=== PATIENT | male | born 1950 | race Caucasian/White ===

== ENCOUNTER 2017-08-09 13:16 | Emergency (ER) | payer MEDICARE, BC ==
[2017-08-09 13:40] LABS: #Basophils 0.1 thou/uL (0.0-0.2); #Eosinphils 0.1 thou/uL (0.0-0.7); #Lymphocytes 1.9 thou/uL (1.20-3.40); #Monocytes 0.7 thou/uL (0.11-0.59); #Neutrophils 4.5 thou/uL (1.40-6.50); %Basophils 0.8 % (0.0-1.0); %Lymphocytes 26.5 % (21.0-51.0); %Monocytes 9.9 % (0.0-10.0); %Neutrophils 60.9 % (42.0-75.0); Mean Corpuscular HGB CONC 34.2 g/dL (32.0-36.0); Mean Corpuscular Hemoglobin 33.2 pg (27.0-31.0); Mean Platelet Volume 6.4 fL (7.4-10.4); Platelet Count 292 thou/uL (130-400); RBC Distribution Width 11.4 % (11.5-14.5); Red Blood Cell (RBC) Count 4.81 mill/uL (4.70-6.10); White Blood Cell (WBC) Count 7.3 thou/uL (4.8-10.8)
[2017-08-09 13:57] LABS: PTT 25.4 SEC (22.9-36.1)
[2017-08-09 14:00] LABS: INR-International Normal Ratio 1.1; Prothrombin Time 13.9 SEC (12.0-14.7)
--- NOTE | 2017-08-09 14:05 | RAD ---
FRONTAL VIEW CHEST: Date: 08/09/17 INDICATION: Syncope. Reference made to 09/25/12. FINDINGS: There is no consolidation, effusion, or pneumothorax. Cardiomediastinal silhouette is within normal l imits of size. Mild osseous degenerative change present. IMPRESSION: No focal consolidation. POS: [facility]
[2017-08-09 14:07] LABS: CKMB 2.7 ng/mL (0-6.6); Troponin I Less than 0.010 ng/mL (< 0.028)
[2017-08-09 14:10] LABS: ALT (SGPT) 27 U/L (8-55); AST (SGOT) 36 U/L (5-34); Albumin 4.3 g/dL (3.4-4.8); Alkaline Phosphatase 60 U/L (40-150); Anion Gap 14 mmol/L (10-20); BUN (Urea Nitrogen) 13 mg/dL (8.4-25.7); Bilirubin, Total 0.7 mg/dL (0.2-1.2); Calc. Creatinine Clearance 0 mL/min (70-130); Calcium 9.8 mg/dL (7.8-10.44); Carbon Dioxide 23 mmol/L (23-31); Chloride 103 mmol/L (98-107); Estimated GFR-MDRD 72; Globulin 3.5 g/dL (2.4-3.5); Glucose 103 mg/dL (80-115); Potassium 3.9 mmol/L (3.5-5.1); Protein, Total 7.8 g/dL (5.8-8.1); Sodium 136 mmol/L (136-145)
[2017-08-09] MEDS ORDERED: Ondansetron HCl/PF 4 MG/2 ML Vial ONE (14:57)
--- NOTE | 2017-08-24 21:50 | EKG ---
Test Reason : Blood Pressure : / mmHG Vent. Rate : 065 BPM Atrial Rate : 065 BPM P-R Int : 182 ms QRS Dur : 090 ms QT Int : 412 ms P-R-T Axes : 045 -45 028 degrees QTc Int : 428 ms Normal sinus rhythm Left anterior fascicular block Abnormal ECG Confirmed by TORSTEN WHITLEY ([id number]), editor city [place]FN PURVIS ([id number]) on 08/24/2017 9:49:56 PM Referred By: Confirmed By:TORSTEN WHITLEY
== END 2017-08-09 15:24 | disposition home or self-care (01) ==
LOC: ERS 13:16
DX: R55 Syncope and collapse (principal); K21.9 Gastro-esophageal reflux disease without esophagitis
CPT/HCPCS: 71045; 80053; 82553; 84484; 85025; 85610; 85730; 93005; 96374; J2405

== ENCOUNTER 2018-09-23 14:33 | Outpatient (CLI) | payer MEDICARE, BC ==
[~2018-09-23 14:33] MED LIST: Gadobenate Dimeglumine 529 MG/1 ML (20ML VIAL) ONE
--- NOTE | 2018-09-23 16:23 | MRI ---
PRE AND POST CONTRAST ENHANCED MRI IMAGES OF THE BRAIN: History: Dizziness for two weeks, R42. Technique: Multiplanar, multisequence pre and post contrast enhanced MRI images were obtained of the brain. FINDINGS: The patient has had previous cataract surgery. Dermal flow voids seen in the major intracranial vessels. No evidence of intracranial masses, hemorrhages or strokes seen. Ventricles are of normal size. No ev idence of abnormal areas of intracranial enhancement seen. IMPRESSION: Unremarkable pre and post contrast enhanced MRI images of the brain. POS: [facility]
== END 2018-09-23 14:34 | disposition home or self-care (01) ==
LOC: TBSIIMAG 14:33
PROVIDERS: ATTEND Family Medicine
DX: R42 Dizziness and giddiness (principal)
CPT/HCPCS: 70553

== ENCOUNTER 2019-03-16 11:04 | Outpatient (CLI) | payer MEDICARE, BC ==
[~2019-03-16 11:04] MED LIST changes: -Gadobenate Dimeglumine 529 MG/1 ML (20ML VIAL) ONE; +ISOVUE-370 76%-LOCM 1 ML ONE
--- NOTE | 2019-03-16 14:15 | CT ---
CT THORAX WITH CONTRAST CT ABDOMEN WITH CONTRAST CT PELVIS WITH CONTRAST: DATE: 03/16/2019 HISTORY: 68-year-old male with epigastric pain. TECHNIQUE: IV iodinated contrast media: Administered Oral contrast media: Not administered Single phase scans of thorax, abdomen, and pelvis. COMPARISON: Abdominal CT of 07/05/[address] of 08/17/2016. No prior pelvic CTs. FINDINGS: CHEST: Lungs are essentially clear. No pneumothorax or pleural effusion. No thoracic aortic aneurysm or diss ection. No cardiomegaly or pericardial effusion. No mediastinal or hilar lymphadenopathy. Trachea and major bronchi are patent and clear. There is a 4 x 3.5 x 5 cm fatty mass located to the right of the distal esophagus at the base of the chest. This has not changed since 2016. It could be a lipoma or herniation of intraperitoneal fat. There is no herniation of the stomach into the chest. No interval change overall in the chest since 08/17/2016. ABDOMEN: Small, approximately 1.5 cm cyst in right lobe of liver straddling hepatic segments 7 and 8, is stabl e. There are a few additional tiny focal hypodensities which are also stable, consistent with additional cysts in the right lobe. Rest of the liver is normal. No splenomegaly. No abdominal aortic aneurysm. No hydronephrosis or pyelonephritis. Normal pancreas and adrenals. Appendix not identified with certainty. No signs of colonic diverticulitis. No small bowel dilation. No intra-abdo dc lymphadenopathy. No interval change. Pelvis: No intrapelvic free fluid. Diffuse mural thickening of the urinary bladder circumferentially. Decompr essed urinary bladder. No iliac chain lymphadenopathy. IMPRESSION: 1. Diffuse mural thickening of the urinary bladder. This could be due to nondistention. Cannot rule o ut cystitis. 2. Otherwise no major pathology identified.
== END 2019-03-16 11:05 | disposition home or self-care (01) ==
LOC: BICCT 11:04
PROVIDERS: ATTEND Family Medicine
DX: R10.13 Epigastric pain (principal); N32.89 Other specified disorders of bladder
CPT/HCPCS: 71260; 74177; 82565; Q9966

== ENCOUNTER 2019-05-20 07:19 | Outpatient (CLI) | payer MEDICARE, BC ==
--- NOTE | 2019-05-20 11:03 | NM ---
HEPATOBILIARY SCAN: HISTORY:Epigastric pain, abdominal pain RADIOPHARMACEUTICAL: 5.1 mCi Technetium 99m Mebrofenin injected intravenously FINDINGS: There is normal tracer extraction by the liver with normal excretion into the biliary tracts and smal l bowel loops and normal filling of the gallbladder. The calculated gallbladder ejection fraction following an oral fatty meal measures 91%. IMPRESSION:Normal exam.
== END 2019-05-20 07:20 | disposition home or self-care (01) ==
LOC: NM 07:19
PROVIDERS: ATTEND Internal Medicine
DX: K92.1 Melena (principal); R10.13 Epigastric pain
CPT/HCPCS: 78227; A9537

== ENCOUNTER 2019-10-20 13:25 | Outpatient (CLI) | payer MEDICARE, BC | END 2019-10-20 13:26 | disposition home or self-care (01) | LOC: CTENTCT 13:25 | PROVIDERS: ATTEND Otolaryngology Plastic Surgery within the Head & Neck | DX: J32.9 Chronic sinusitis, unspecified (principal) | CPT/HCPCS: 70486 ==

== ENCOUNTER 2023-05-30 17:43 | Inpatient (IN) | payer MEDICARE ==
[2023-05-30 18:12] LABS: #Eosinphils 0.2 thou/uL (0.0-0.7); #Monocytes 0.7 thou/uL (0.11-0.59); #Neutrophils 4.8 thou/uL (1.40-6.50); %Basophils 0.6 % (0.0-1.0); %Eosinophils 2.9 % (0.0-10.0); %Lymphocytes 15.5 % (21.0-51.0); %Monocytes 10.1 % (0.0-10.0); %Neutrophils 70.8 % (42.0-75.0); Hematocrit 43.5 % (42.0-52.0); Hemoglobin 14.5 g/dL (14.0-18.0); Mean Corpuscular HGB CONC 33.3 g/dL (32.0-36.0); Mean Corpuscular Hemoglobin 31.7 pg (27.0-31.0); Mean Corpuscular Volume 95.2 fl (78.0-98.0); Mean Platelet Volume 9.2 fL (7.4-10.4); Platelet Count 265 10x3/uL (130-400); RBC Distribution Width 12.9 % (11.5-14.5); Red Blood Cell (RBC) Count 4.57 mill/uL (4.70-6.10); White Blood Cell (WBC) Count 6.8 10x3/uL (4.8-10.8)
[2023-05-30] MEDS ORDERED: dilTIAZem 125 MG/25 ML SDV ONE (18:21)
[2023-05-30 18:34] LABS: ALT (SGPT) 30 U/L (8-55); AST (SGOT) 26 U/L (5-34); Albumin 4.6 g/dL (3.4-4.8); Alkaline Phosphatase 111 U/L (40-110); Anion Gap 13 mmol/L (10-20); BUN (Urea Nitrogen) 15 mg/dL (8.4-25.7); Bilirubin, Total 0.5 mg/dL (0.2-1.2); Calc. Creatinine Clearance 0 mL/min (70-130); Calcium 9.9 mg/dL (7.8-10.44); Carbon Dioxide 26 mmol/L (23-31); Chloride 103 mmol/L (98-107); Estimated GFR 66; Globulin 3.2 g/dL (2.4-3.5); Glucose 135 mg/dL (83-110); Potassium 3.6 mmol/L (3.5-5.1); Protein, Total 7.8 g/dL (5.8-8.1); Sodium 138 mmol/L (136-145)
[2023-05-30 18:46] LABS: Troponin I Less than 0.010 ng/mL (< 0.028)
[2023-05-30 18:52] LABS: INR-International Normal Ratio 1.1; PTT 28.5 sec (22.9-36.1); Prothrombin Time 14.6 sec (12.0-14.7)
[2023-05-30] MEDS ORDERED: Ondansetron ODT 4 MG TAB PO PRN (19:56)
[2023-05-30] MEDS ORDERED: Acetaminophen 325 MG TAB PO PRN (19:56)
[2023-05-30] MEDS ORDERED: dilTIAZem 125 MG in Sodium Chloride 0.9% 100 ML IVPB SCH (20:00)
[2023-05-30 20:56] LABS: Troponin I Less than 0.010 ng/mL (< 0.028)
[2023-05-30] MEDS: Famotidine 20 MG TAB PO SCH (22:24)
[2023-05-30 22:36] VITALS: BMI 28.4
[2023-05-31 00:25] LABS: Troponin I Less than 0.010 ng/mL (< 0.028)
[2023-05-31 05:35] LABS: Anion Gap 14 mmol/L (10-20); BUN (Urea Nitrogen) 12 mg/dL (8.4-25.7); Calc. Creatinine Clearance 80 mL/min (70-130); Calcium 9.1 mg/dL (7.8-10.44); Carbon Dioxide 21 mmol/L (23-31); Cardiac Risk 4.2 (Less than 4.5); Chloride 107 mmol/L (98-107); Cholesterol 178 mg/dl (< 200 Desired); Estimated GFR 82; Glucose 92 mg/dL (83-110); HDL Cholesterol 42 mg/dL (>60 Neg Risk); Potassium 3.9 mmol/L (3.5-5.1); Sodium 138 mmol/L (136-145)
[2023-05-31 06:16] LABS: Triglycerides 67 mg/dL (Less than 150)
[2023-05-31 06:43] LABS: LDL Cholesterol, Calculated 123 mg/dL
[2023-05-31] MEDS: Carvedilol 3.125 MG TAB PO SCH ×2 (08:20→16:26)
[2023-05-31] MEDS: Famotidine 20 MG TAB PO SCH (08:20)
[2023-05-31] MEDS: Aspirin Chewable 81 MG TAB PO SCH (08:20)
[2023-05-31] MEDS: Apixaban 5 MG TAB PO SCH ×2 (08:20→19:48)
[2023-05-31 18:58] LABS: Magnesium 1.9 mg/dL (1.6-2.6)
[2023-05-31] MEDS: Amiodarone 450 MG in Dextrose 5% in Water 250 ML IVPB SCH (19:45)
[2023-05-31] MEDS: Sacubitril 24MG/Valsartan 26 MG TAB PO SCH (19:48)
[2023-06-01] MEDS: Amiodarone 450 MG in Dextrose 5% in Water 250 ML IVPB SCH ×2 (04:10→19:48)
[2023-06-01] MEDS: Carvedilol 3.125 MG TAB PO SCH ×2 (08:16→16:18)
[2023-06-01] MEDS: Sacubitril 24MG/Valsartan 26 MG TAB PO SCH ×2 (08:18→19:42)
[2023-06-01] MEDS: Aspirin Chewable 81 MG TAB PO SCH (08:18)
[2023-06-01] MEDS: Empagliflozin 10 MG TAB PO SCH (08:18)
[2023-06-01] MEDS: Apixaban 5 MG TAB PO SCH ×2 (08:18→19:42)
[2023-06-02] MEDS: Sacubitril 24MG/Valsartan 26 MG TAB PO SCH ×2 (09:14→20:39)
[2023-06-02] MEDS: Empagliflozin 10 MG TAB PO SCH (09:14)
[2023-06-02] MEDS: Aspirin Chewable 81 MG TAB PO SCH (09:14)
[2023-06-02] MEDS: Carvedilol 3.125 MG TAB PO SCH ×2 (09:14→16:42)
[2023-06-02] MEDS: Apixaban 5 MG TAB PO SCH ×2 (09:14→20:39)
[2023-06-02] MEDS: Amiodarone 450 MG in Dextrose 5% in Water 250 ML IVPB SCH ×2 (09:16→23:14)
[2023-06-03] MEDS: Empagliflozin 10 MG TAB PO SCH (08:36)
[2023-06-03] MEDS: Apixaban 5 MG TAB PO SCH (08:36)
[2023-06-03] MEDS: Carvedilol 3.125 MG TAB PO SCH (08:36)
[2023-06-03] MEDS: Aspirin Chewable 81 MG TAB PO SCH (08:37)
[2023-06-03] MEDS: Sacubitril 24MG/Valsartan 26 MG TAB PO SCH (08:37)
[2023-06-03 12:17] VITALS: TEMP 98.7
[2023-06-03] MEDS ORDERED: PROPOFOL 200 MG/20 ML VIAL ONE (14:29)
[2023-06-03] MEDS ORDERED: Lidocaine 1% PF 5 ML VIAL ONE (14:29)
[2023-06-03 15:58] VITALS: BP 127/62
[2023-06-03] MEDS ORDERED: Amiodarone 200 MG TAB PO SCH ×2 (16:00→21:00)
[2023-06-04] MEDS ORDERED: Spironolactone 25 MG TAB PO SCH (08:00)
[2023-06-11] MEDS ORDERED: Amiodarone 200 MG TAB PO SCH (09:00)
== END 2023-06-03 17:45 | disposition home or self-care (01) | DRG 308 ==
LOC: ERS 17:43 → 2SW 19:56 → OBSVTOIN 05-31 16:05
PROVIDERS: ADMIT Student in an Organized Health Care Education/Training Program; ATTEND Internal Medicine
PROC: 5A2204Z Restoration of Cardiac Rhythm, Single (ICD-10-PCS; principal; 2023-06-03)
PROC: B24BZZ4 Ultrasonography of Heart with Aorta, Transesophageal (ICD-10-PCS; 2023-06-03)
DX: I48.91 Unspecified atrial fibrillation (principal); I50.21 Acute systolic (congestive) heart failure; E78.5 Hyperlipidemia, unspecified; K21.9 Gastro-esophageal reflux disease without esophagitis; Z98.890 Other specified postprocedural states; Z79.01 Long term (current) use of anticoagulants; Z79.82 Long term (current) use of aspirin; Z79.899 Other long term (current) drug therapy; I42.0 Dilated cardiomyopathy; I11.0 Hypertensive heart disease with heart failure
CPT/HCPCS: 36415; 36416; 71045; 80048; 80053; 80061; 83735; 83880; 84443; 84484; 85025; 85610; 85730; 92960; 93005; 93010; 93306; 93312; 96365; 96366; 96372; G0378; J0282; J1650; J2704; J7070; Q0162

== ENCOUNTER 2023-09-23 07:44 | Day surgery (SDC) | payer MEDICARE ==
[2023-09-19 13:32] VITALS: BMI 29.2
[2023-09-19 14:26] LABS: Hematocrit 40.8 % (38.8-50.0); Hemoglobin 13.7 g/dL (13.5-17.5); Mean Corpuscular HGB CONC 33.6 g/dL (32.0-36.0); Mean Corpuscular Hemoglobin 30.9 pg (27.0-33.0); Mean Corpuscular Volume 91.9 fl (81.2-95.1); Mean Platelet Volume 9.1 fl (7.4-10.4); Platelet Count 337 10x3/uL (150-450); RBC Distribution Width 12.8 % (11.5-14.5); Red Blood Cell (RBC) Count 4.44 10x6/uL (4.32-5.72); White Blood Cell (WBC) Count 8.6 10x3/uL (3.5-10.5)
[2023-09-19 14:35] LABS: INR-International Normal Ratio 1.1; PTT 31.6 sec (22.0-33.0); Prothrombin Time 11.4 sec (9.5-12.1)
[2023-09-19 14:41] LABS: Anion Gap 12 mmol/L (10-20); BUN (Urea Nitrogen) 19 mg/dL (8.4-25.7); Calc. Creatinine Clearance 66 mL/min (70-130); Calcium 9.1 mg/dL (7.8-10.44); Carbon Dioxide 24 mmol/L (23-31); Chloride 105 mmol/L (98-107); Estimated GFR 64; Glucose 73 mg/dL (83-110); Potassium 4.4 mmol/L (3.5-5.1); Sodium 137 mmol/L (136-145)
[2023-09-23] MEDS ORDERED: Isoproterenol 0.2 MG/1 ML AMP ONE ×2 (08:34→11:23)
[2023-09-23] MEDS ORDERED: Protamine Sulfate 50 MG/5 ML VIAL ONE (08:34)
[2023-09-23] MEDS ORDERED: Heparin 10,000 UNITS/ 10 ML VIAL ONE (08:34)
[2023-09-23] MEDS ORDERED: Heparin 25,000 units/D5W 500 ML ONE (08:34)
[2023-09-23] MEDS ORDERED: Phenylephrine 40 MG/NS 250 ML 250 ML ONE (10:05)
[2023-09-23] MEDS ORDERED: fentaNYL 50 mcg/mL 1 mL Vial ONE (13:08)
== END 2023-09-23 17:04 | disposition home or self-care (01) ==
LOC: SDC 07:44
PROVIDERS: ATTEND Internal Medicine Cardiovascular Disease
PROC: 02583ZZ Destruction of Conduction Mechanism, Percutaneous Approach (ICD-10-PCS; principal; 2023-09-23)
PROC: 4A023FZ Measurement of Cardiac Rhythm, Percutaneous Approach (ICD-10-PCS; 2023-09-23)
PROC: 4A0234Z Measurement of Cardiac Electrical Activity, Percutaneous Approach (ICD-10-PCS; 2023-09-23)
DX: I48.19 Other persistent atrial fibrillation (principal); I10 Essential (primary) hypertension; E78.5 Hyperlipidemia, unspecified; I42.8 Other cardiomyopathies; Z79.01 Long term (current) use of anticoagulants; Z79.899 Other long term (current) drug therapy; Z79.82 Long term (current) use of aspirin; Z87.891 Personal history of nicotine dependence
CPT/HCPCS: 80048; 85027; 85347 ×2; 85610; 85730; 93005; 93623; 93655; 93656; 93657; C1732 ×3; C1759; C1760; C1894; J3010; J1644; J2720

== ENCOUNTER 2025-04-20 13:48 | Outpatient (CLI) | payer OTHER | END 2025-04-20 13:49 | disposition home or self-care (01) | LOC: ULT 13:48 | PROVIDERS: ATTEND Urology | DX: N43.3 Hydrocele, unspecified (principal) | CPT/HCPCS: 76870; 93976 ==